=== PATIENT | female | born 1995 | race Caucasian/White ===

== ENCOUNTER → 2016-10-24 | Outpatient (CLI) | payer OTHER ==
--- NOTE | 2016-10-24 16:52 | REP ---
Obstetric sonography: History: Supervision of for anatomy. Findings: Scanning through the gravid uterus demonstrates a viable single intrauterine gestation in a cephalic lie. motion is observed and heart rate is recorded at 136 beats per minute. Anterior grade zero placenta is seen without evidence of previa. Amniotic fluid is subjectively normal. Closed cervical length is 4.0 cm measured transabdominally. No anomaly is seen. The following anatomic cysts features are identified and felt to be sonographically unremarkable: cranium, choroid plexus, cavum, cerebellum and posterior fossa, face and profile, lungs, four-chamber heart with left and right ventricular outflow tract views, diaphragm, left-sided stomach, abdominal wall cord insertion, three-vessel umbilical cord, kidneys and bladder, spine, upper and lower extremities. Biometry chart: BPD 4.5 cm = 19 weeks 5 days Head circumference 16.7 cm = 19 weeks 3 days Abdominal circumference 15.0 cm = 20 weeks 2 days Femur length 3.1 cm = 19 weeks 4 days Humeral length 2.9 cm = 19 weeks 3 days Cerebellar diameter 2.0 cm = 19 weeks 2 days HC/AC ratio normal at 1.12, cephalic index normal at 0.75, estimated weight 318 grams, 0 pounds 11 ounces, 60th percentile for 19 weeks 4 days. Impression: Viable single intrauterine gestation at 19 weeks 4 days by today's composite sonographic criteria. DEMOND by today's sonography 03/16/2017. anatomic survey is felt to be complete. Signed by Santos Masters MD 10/24/2016 05:09 P
== END | disposition home or self-care (01) ==
LOC: M SMT 10:46
PROVIDERS: ATTEND Advanced Practice Midwife
DX: Z34.82 Encounter for supervision of other normal pregnancy, second trimester (principal); Z36 Encounter for antenatal screening of mother; Z3A.19 19 weeks gestation of pregnancy

== ENCOUNTER → 2016-12-25 | Outpatient (CLI) | payer OTHER ==
[2016-12-25 18:22] LABS: BASO % 0.2 % (0.0-1.0); EOS # 0.1 K/mm3 (0.0-0.50); EOS % 0.6 % (0.0-3.0); LARGE UNSTAINED CELL # 0.1 K/mm3 (0.0-0.4); LYMPH # 1.4 K/mm3 (1.5-6.5); LYMPH % 14.7 % (24.0-44.0); MEAN CORPUSCULAR HEMOGLOBIN 27.1 pg (27.0-33.0); MEAN CORPUSCULAR HGB CONC 32.8 g/dl (32.0-36.5); MEAN CORPUSCULAR VOLUME 82.5 fl (80.0-96.0); MONO # 0.5 K/mm3 (0.0-0.8); MONO % 5.2 % (0.0-5.0); NEUTROPHILS # 7.1 K/mm3 (1.8-7.7); NEUTROPHILS % 78.2 % (36.0-66.0); PLATELET COUNT, AUTOMATED 437 k/mm3 (150-450); RED CELL DISTRIBUTION WIDTH 12.3 % (11.5-14.5); WHITE BLOOD COUNT 9.1 K/mm3 (4.0-10.0)
== END ==
LOC: M SMT 12:57
PROVIDERS: ATTEND Specialist
DX: Z34.82 Encounter for supervision of other normal pregnancy, second trimester (principal); Z36 Encounter for antenatal screening of mother; Z3A.00 Weeks of gestation of pregnancy not specified

== ENCOUNTER → 2017-01-29 | Outpatient (CLI) | payer OTHER ==
[2017-01-29 18:49] LABS: MEAN CORPUSCULAR HEMOGLOBIN 27.6 pg (27.0-33.0); MEAN CORPUSCULAR HGB CONC 32.9 g/dl (32.0-36.5); MEAN CORPUSCULAR VOLUME 83.9 fl (80.0-96.0); WHITE BLOOD COUNT 10.4 K/mm3 (4.0-10.0)
== END ==
LOC: M SMT 13:45
PROVIDERS: ATTEND Obstetrics & Gynecology
DX: Z34.83 Encounter for supervision of other normal pregnancy, third trimester (principal)

== ENCOUNTER 2017-02-12 08:51 | Outpatient (CLI) | payer OTHER ==
[~2017-02-12] VITALS: Ht 160 cm; Wt 74.8 kg
[2017-02-12] MEDS ORDERED: IRON SUCROSE 500 MG in NS 250 ML IV ONE (09:30)
[2017-02-12] MEDS ORDERED: FERR325T3 PO (09:40)
[2017-02-12] MEDS ORDERED: OMEP20CA3 PO (09:40)
[2017-02-12] MEDS ORDERED: ZANT1TAB PO (09:40)
== END 2017-02-12 14:00 | disposition home or self-care (01) ==
LOC: M INFU 08:51
PROVIDERS: ATTEND Specialist
DX: D64.9 Anemia, unspecified (principal); Z79.899 Other long term (current) drug therapy
CPT/HCPCS: 96365; 96366; J1756

== ENCOUNTER → 2017-02-15 | Outpatient (REF) | payer OTHER ==
[~2017-02-15] MED LIST: FERR325T3 PO; OMEP20CA3 PO; ZANT1TAB PO
== END ==
LOC: M LAB REF 16:56
PROVIDERS: ATTEND Advanced Practice Midwife
DX: Z34.83 Encounter for supervision of other normal pregnancy, third trimester (principal); Z36 Encounter for antenatal screening of mother; Z3A.00 Weeks of gestation of pregnancy not specified

== ENCOUNTER 2017-03-19 05:24 | Inpatient (IN) | payer OTHER ==
[~2017-03-19] VITALS: Ht 157.5 cm; Wt 76.0 kg
[2017-03-19] VITALS (23 sets, daily range): BP systolic 111–138; BP diastolic 58–99
[2017-03-19] MEDS ORDERED: PRENTAB55 PO (05:37)
[2017-03-19 06:24] LABS: MEAN CORPUSCULAR HEMOGLOBIN 27.9 pg (27.0-33.0); MEAN CORPUSCULAR HGB CONC 33.4 g/dl (32.0-36.5); MEAN CORPUSCULAR VOLUME 83.4 fl (80.0-96.0); WHITE BLOOD COUNT 9.8 K/mm3 (4.0-10.0)
--- NOTE | 2017-03-19 08:00 | HPE ---
DATE OF ADMISSION: 03/19/2017 22-year-old, (G) 1, para (P) 0 female at 40 and 6/7 weeks gestation by 8 week ultrasound with expected date of confinement (EDC) of 03/13/2017 who presents with loss of fluid per vagina at approximately 3:00 a.m. on the morning of admission. She had a large gush of fluid and continued to leak. Contractions began to increase shortly thereafter. There is good movement. COURSE: Patient initiated care at 9 weeks gestation on 08/01/2016. Her first trimester blood pressure was 122/68. course was significant for anemia and she had an iron infusion in December 2016. MEDICAL HISTORY: Noncontributory. SURGERIES: None. ALLERGIES: None. SOCIAL HISTORY: The patient is . She denies cigarettes, alcohol or drug use during . FAMILY HISTORY: Noncontributory. PHYSICAL EXAMINATION: Blood pressure 124/74. Pulse 84. She appears uncomfortable. HEAD AND NECK EXAM: Normal. LUNGS: Clear. HEART: Regular rate and rhythm. ABDOMEN: Nontender. Gravid. heart tones Category 1. STERILE VAGINAL EXAM: Grossly ruptured. Clear fluid noted. 3 cm dilated, 100% effaced, -2 station, vertex. EXTREMITIES: Nontender. LABS: Blood type A positive. Rubella equivocal. She had positive Chlamydia 08/01/2016 and subsequent negative test of cure. Diabetes screen 100. GBS negative on 02/15/2017. ASSESSMENT: 22-year-old, G1, at 40-6/7 weeks gestation who presents with ruptured membranes in active labor. The patient is admitted on 03/19/2017.
[2017-03-19] MEDS ORDERED: FENTANYL 2MCG/ML ROPIVACAINE 0.2% IN 0.9% NACL 200ML IVBAG As Ordered ONE (08:04)
[2017-03-19] MEDS ORDERED: REFRIGERATOR IV KEYS XX PRN (08:45)
[2017-03-19] MEDS ORDERED: FENTANYL/ROPIVACAINE/NACL BAG 200 ML EPIDURAL SCH (08:45)
[2017-03-19] MEDS ORDERED: ONDANSETRON 4MG/2ML VIAL (J2405) IV PRN ×2 (08:45→13:00)
[2017-03-19] MEDS ORDERED: ePHEDrine SULFATE 25 MG/5 ML(5MG/ML) SYRINGE IV PRN (08:45)
[2017-03-19] MEDS ORDERED: EPIDURAL COMMENT XX SCH (08:45)
[2017-03-19] MEDS ORDERED: diphenhydrAMINE INJ 50MG/ML VIAL (J1200) IV PRN (08:45)
[2017-03-19] MEDS ORDERED: EPIDURAL/PCA KEYS XX PRN (08:45)
[2017-03-19] MEDS ORDERED: LACTATED RINGER'S 1000 ML IV PRN (08:45)
[2017-03-19] MEDS ORDERED: NALOXONE INJ 0.4 MG/1 ML VIAL (J2310) IV PRN (08:45)
[2017-03-19] MEDS: PRENATAL VITAMINS CHEWABLE TABLET PO SCH (09:00)
[2017-03-19] MEDS ORDERED: LR 1,000 ML IV SCH ×2 (11:06→13:00)
[2017-03-19] MEDS ORDERED: OXYTOCIN 30 UNITS IN 0.9% NaCl 500ML IV BAG (J2590) As Ordered ONE (12:42)
[2017-03-19] MEDS ORDERED: DIBUCAINE 1% OINTMENT 30GM TOP PRN (13:00)
[2017-03-19] MEDS ORDERED: PROMETHAZINE 25 MG TAB PO PRN (13:00)
[2017-03-19] MEDS ORDERED: MEASLES,MUMPS,RUBELLA VACCINE INJ (MMR-II) (90707) SC SCH (13:00)
[2017-03-19] MEDS ORDERED: OXYTOCIN DRIP 30 UNITS in APPROPRIATE DILUENT 1 EA IV SCH (13:00)
[2017-03-19] MEDS ORDERED: RHOGAM 300 MCG (1500 IU) INJ (J2790) IM SCH (13:00)
[2017-03-19] MEDS ORDERED: METHYLERGONOVINE MALEATE 0.2 MG TAB PO PRN (13:00)
[2017-03-19] MEDS ORDERED: ACETAMINOPHEN 500 MG TAB PO PRN (13:00)
[2017-03-19] MEDS ORDERED: DOCUSATE SODIUM 100 MG CAP PO PRN (13:00)
[2017-03-19] MEDS ORDERED: IBUPROFEN 800 MG TAB PO PRN (13:00)
[2017-03-20 05:57] VITALS: BP 117/66
[2017-03-20] MEDS: PRENATAL VITAMINS CHEWABLE TABLET PO SCH ×2 (08:12→08:15)
[2017-03-20 18:00] VITALS: BP 115/58
[2017-03-21 05:56] VITALS: BP 123/70
[2017-03-21] MEDS: PRENATAL VITAMINS CHEWABLE TABLET PO SCH (08:22)
[2017-03-21] MEDS ORDERED: TYLE500T78 PO (08:41)
[2017-03-21] MEDS ORDERED: IBUP-1114 PO (08:42)
== END 2017-03-21 10:15 | disposition home or self-care (01) | DRG 775 ==
LOC: M LDO 05:24 → M OBS 06:05 → M LDI 07:43 → M OBS 15:08
PROVIDERS: ADMIT Specialist; ATTEND Specialist
PROC: 10E0XZZ Delivery of Products of Conception, External Approach (ICD-10-PCS; principal; 2017-03-19)
PROC: 0HQ9XZZ Repair Perineum Skin, External Approach (ICD-10-PCS; 2017-03-19)
DX: O48.0 Post-term pregnancy (principal); Z37.0 Single live birth; Z3A.40 40 weeks gestation of pregnancy; D64.9 Anemia, unspecified; O70.0 First degree perineal laceration during delivery; O99.02 Anemia complicating childbirth

== ENCOUNTER 2017-11-09 10:46 | Emergency (ER) | payer OTHER ==
[2017-11-09] MEDS: ACETAMINOPHEN TAB 650MG DOSE (2X325MG) PO (12:17)
== END 2017-11-09 12:48 | disposition home or self-care (01) ==
LOC: M ED 10:46
DX: S09.90XA Unspecified injury of head, initial encounter (principal); Y04.8XXA Assault by other bodily force, initial encounter; Y92.009 Unspecified place in unspecified non-institutional (private) residence as the place of occurrence of the external cause; Q76.49 Other congenital malformations of spine, not associated with scoliosis; Z97.5 Presence of (intrauterine) contraceptive device
CPT/HCPCS: 70450

== ENCOUNTER → 2017-11-21 | Outpatient (REF) | payer OTHER | LOC: M LAB REF 14:29 | DX: J02.9 Acute pharyngitis, unspecified (principal) ==

== ENCOUNTER → 2018-09-01 | Outpatient (REF) | payer OTHER, SELFPAY ==
[~2018-09-01] MED LIST changes: +IBUP-1114 PO; +PRENTAB55 PO; +TYLE500T78 PO; +ZANT150T15 PO; -ZANT1TAB PO; +iud
[2018-09-01 12:57] LABS: BASO % 0.4 % (0.0-1.0); EOS # 0.1 10^3/uL (0.0-0.50); HEMATOCRIT 39.5 % (36.0-47.0); HEMOGLOBIN 13.4 g/dl (12.0-15.5); LYMPH # 2.5 10^3/uL (1.5-6.5); LYMPH % 33.4 % (24.0-44.0); MEAN CORPUSCULAR HEMOGLOBIN 28.9 pg (27.0-33.0); MEAN CORPUSCULAR HGB CONC 33.9 g/dl (32.0-36.5); MEAN CORPUSCULAR VOLUME 85.3 fl (80.0-96.0); MONO # 0.4 10^3/uL (0.0-0.8); NEUTROPHILS # 4.3 10^3/uL (1.8-7.7); NEUTROPHILS % 58.9 % (36.0-66.0); PLATELET COUNT, AUTOMATED 346 10^3/uL (150-450); RED BLOOD COUNT 4.63 10^6/uL (4.00-5.40); WHITE BLOOD COUNT 7.4 10^3/uL (4.0-10.0)
== END ==
LOC: M SFHCADAM 10:06
PROVIDERS: ATTEND Physician Assistant Medical
DX: Z13.0 Encounter for screening for diseases of the blood and blood-forming organs and certain disorders involving the immune mechanism (principal)
CPT/HCPCS: 85025; G0463

== ENCOUNTER → 2018-12-26 | Outpatient (REF) | payer OTHER ==
[2018-12-26 12:47] LABS: FREE T4 1.11 NG/DL (0.76-1.46); THYROID STIMULATING HORMONE 1.17 uIU/ML (0.358-3.740)
== END ==
LOC: M SFHCADAM 09:10
PROVIDERS: ATTEND Physician Assistant Medical
DX: F32.1 Major depressive disorder, single episode, moderate (principal)
CPT/HCPCS: 84439; 84443; G0463

== ENCOUNTER → 2019-07-02 | Outpatient (REF) | payer BC, OTHER ==
[~2019-07-02] MED LIST changes: -OMEP20CA3 PO; +OMEP20CA4 PO
== END ==
LOC: M LAB REF 13:42
PROVIDERS: ATTEND Physician Assistant
DX: M54.9 Dorsalgia, unspecified (principal)

== ENCOUNTER → 2019-07-03 | Outpatient (CLI) | payer BC, OTHER ==
--- NOTE | 2019-07-03 11:10 | REP ---
Renal ultrasound, stat request: The patient complains of flank pain. The The right kidney measures 10.0 x 4.5 of 4.6 cm. The left kidney measures 10.3 x 4.6 x 4.4 cm. The kidneys are normal size. Renal cortical echogenicity is normal bilaterally. There is no hydronephrosis on the right on the left. There are no renal calculi. There are no solid or cystic renal masses. Bladder: Ureteral jets could not be identified with color Doppler assessment, however, there is no hydronephrosis. Impression: No renal calculi are identified. There is no hydronephrosis. There are no solid or cystic masses. Essentially negative renal ultrasound. Electronically Signed by Miguel Medrano MD 07/03/2019 11:01 A
== END ==
LOC: M RAD 09:40 → MERGE 09:40
PROVIDERS: ATTEND Physician Assistant
DX: R10.9 Unspecified abdominal pain (principal)

== ENCOUNTER 2019-09-15 19:02 | Emergency (ER) | payer OTHER, BC ==
[~2019-09-15] VITALS: Ht 157.5 cm; Wt 56.8 kg
[~2019-09-15 19:02] MED LIST changes: +OMEP-172 PO; -OMEP20CA4 PO
[2019-09-15] MEDS ORDERED: SERT-138 PO (19:10)
[2019-09-15 19:12] VITALS: BP 131/78
[2019-09-15] MEDS ORDERED: MIRE1IUD IU (19:14)
--- NOTE | 2019-09-15 20:00 | REPVR ---
PROCEDURE INFORMATION: Exam: CT Head Without Contrast Exam date and time: 09/15/2019 7:26 PM Age: 24 years old Clinical indication: Pain; Headache; Additional info: Trauma TECHNIQUE: Imaging protocol: Computed tomography of the head without contrast. Axial and coronal reformatted images were created and reviewed. Radiation optimization: All CT scans at this facility use at least one of these dose optimization techniques: automated exposure control; mA and/or kV adjustment per patient size (includes targeted exams where dose is matched to clinical indication); or iterative reconstruction. COMPARISON: CT Head without contrast 11/09/2017 11:59 AM FINDINGS: Brain: No CT evidence of acute intracranial hemorrhage or acute territorial infarction. No significant mass effect or midline shift. Basal cisterns patent. Ventricles: Normal in size and configuration. Bones/joints: No acute osseous abnormality. Sinuses: Grossly unremarkable. Mastoid air cells: Grossly unremarkable. Soft tissues: Grossly unremarkable. IMPRESSION: No CT evidence of acute intracranial pathology. Electronically signed by: Crow Orozco On 09/15/2019 19:59:52 PM
--- NOTE | 2019-09-15 20:05 | REPVR ---
PROCEDURE INFORMATION: Exam: CT Cervical Spine Without Contrast Exam date and time: 09/15/2019 7:26 PM Age: 24 years old Clinical indication: Neck pain; Additional info: Trauma TECHNIQUE: Imaging protocol: Computed tomography images of the cervical spine without contrast. Axial, coronal and sagittal reformatted images were created and reviewed. Radiation optimization: All CT scans at this facility use at least one of these dose optimization techniques: automated exposure control; mA and/or kV adjustment per patient size (includes targeted exams where dose is matched to clinical indication); or iterative reconstruction. COMPARISON: CT Spine,cervical w/o contrast 11/09/2017 11:59 AM FINDINGS: Vertebrae: Normal cervical lordosis. Alignment anatomic. Mild dextroscoliosis. 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 No CT evidence of acute fracture, dislocation or subluxation. Vertebral body heights maintained. Discs/Spinal canal/Neural foramina: Intervertebral disc spaces preserved. No significant spinal canal or neural foraminal stenosis. Soft tissues: Grossly unremarkable. Lungs: Grossly unremarkable. IMPRESSION: 1. No CT evidence of acute cervical spine traumatic injury. 2. Additional findings, as above. Electronically signed by: Crow Orozco On 09/15/2019 20:05:24 PM
== END 2019-09-15 20:22 | disposition home or self-care (01) ==
LOC: M ED 19:02
DX: S00.93XA Contusion of unspecified part of head, initial encounter (principal); S16.1XXA Strain of muscle, fascia and tendon at neck level, initial encounter; V49.40XA Driver injured in collision with unspecified motor vehicles in traffic accident, initial encounter; Y92.410 Unspecified street and highway as the place of occurrence of the external cause; Y93.9 Activity, unspecified

== ENCOUNTER → 2019-11-13 | Outpatient (CLI) | payer OTHER, BC ==
[~2019-11-13] MED LIST changes: +MIRE1IUD IU; -OMEP-172 PO; +OMEP1CAP73 PO; +SERT-138 PO
--- NOTE | 2019-11-13 14:13 | REP ---
Clinical: Pain Technique: AP, lateral, bilateral oblique views right foot . Findings: The osseous structures and joint spaces are intact and normal. There is no evidence for acute fracture or dislocation. Surrounding soft tissues are unremarkable. No subcutaneous emphysema or radiodense foreign body. Impression: No acute fracture or dislocation. Electronically Signed by Mike Veliz MD 11/13/2019 02:05 P
--- NOTE | 2019-11-13 14:13 | REP ---
Clinical: Nontraumatic pain. Technique: AP, lateral, bilateral oblique views of the right ankle. Findings: Osseous structures, joint spaces, and surrounding soft tissues are essentially normal. No significant swelling. Ankle mortise intact. Impression: Normal right ankle radiographs. Electronically Signed by Mike eVliz MD 11/13/2019 02:04 P
== END ==
LOC: M ADAMS 13:13
PROVIDERS: ATTEND Nurse Practitioner Family
DX: M25.571 Pain in right ankle and joints of right foot (principal)

== ENCOUNTER → 2020-06-03 | Outpatient (CLI) | payer BC, OTHER ==
--- NOTE | 2020-06-23 11:20 | REP ---
LEFT KNEE X-RAY: CLINICAL: Pain TECHNIQUE: AP, lateral, bilateral oblique and sunrise views of the left knee. FINDINGS: Osseous structures, joint spaces and surrounding soft tissues appear relatively normal. No acute or healed injury is appreciated. No significant arthritic changes. No obvious effusion. IMPRESSION: Normal left knee radiographs. MTDD
== END ==
LOC: M ADAMS 09:31
PROVIDERS: ATTEND Nurse Practitioner Family
DX: M25.562 Pain in left knee (principal)

== ENCOUNTER → 2022-06-29 | Outpatient (REF) | payer OTHER, BC | LOC: M SFHCWAGY 10:05 | PROVIDERS: ATTEND Nurse Practitioner Family | DX: Z12.4 Encounter for screening for malignant neoplasm of cervix (principal); N76.0 Acute vaginitis ==

== ENCOUNTER 2023-08-07 05:45 | Emergency (ER) | payer BC, MEDICAID, OTHER ==
[~2023-08-07] VITALS: Ht 157.5 cm; Wt 60.9 kg
[2023-08-07 05:45] VITALS: BP 123/78; TEMP 98.7; O2SAT 100
[2023-08-07] MEDS ORDERED: IBUPROFEN 800 MG TAB PO ONE (06:55)
== END 2023-08-07 08:49 | disposition home or self-care (01) ==
LOC: M ED 05:45
DX: S92.402A Displaced unspecified fracture of left great toe, initial encounter for closed fracture (principal); W20.8XXA Other cause of strike by thrown, projected or falling object, initial encounter; F10.10 Alcohol abuse, uncomplicated; Y92.39 Other specified sports and athletic area as the place of occurrence of the external cause; Y93.B3 Activity, free weights; Y99.9 Unspecified external cause status; Z79.899 Other long term (current) drug therapy

== ENCOUNTER 2024-07-12 16:27 | Emergency (ER) | payer MEDICAID, OTHER ==
[~2024-07-12] VITALS: Ht 157.5 cm; Wt 65.9 kg
[2024-07-12 16:30] VITALS: BP 116/67; TEMP 99.1; O2SAT 99
[2024-07-12] MEDS: NORCO, ANEXSIA 5/325MG TABLET (HYDROcodone/ACETAMINOPHEN) PO ONE (19:08)
[2024-07-12] MEDS ORDERED: NAPR-837 PO (19:17)
== END 2024-07-12 19:37 | disposition home or self-care (01) ==
LOC: M ED 16:27
DX: M23.92 Unspecified internal derangement of left knee (principal); M25.462 Effusion, left knee; Y92.9 Unspecified place or not applicable; Y93.66 Activity, soccer; Y99.9 Unspecified external cause status; Z79.1 Long term (current) use of non-steroidal anti-inflammatories (NSAID); Z79.899 Other long term (current) drug therapy

== ENCOUNTER → 2025-05-20 | Outpatient (REF) | payer MEDICAID, OTHER ==
[~2025-05-20] MED LIST changes: +NAPR-837 PO
[2025-05-20 17:40] LABS: BASO # 0.0 10^3/uL (0.0-0.2); BASO % 0.4 % (0.0-1.0); EOS # 0.1 10^3/uL (0.0-0.5); EOS % 0.8 % (0.0-3.0); LYMPH # 3.0 10^3/uL (1.5-5.0); LYMPH % 29.8 % (24.0-44.0); MONO # 0.8 10^3/uL (0.0-0.8); MONO % 7.6 % (2.0-8.0); NEUTROPHILS # 6.1 10^3/uL (1.5-8.5); NEUTROPHILS % 61.2 % (36.0-66.0); PLATELET COUNT, AUTOMATED 350 10^3/uL (150-450)
[2025-05-20 17:49] LABS: ERYTHROCYTE SEDIMENTATION RATE 25 mm/hr (0-20)
[2025-05-20 18:26] LABS: C REACTIVE PROTEIN QUANTITATIV < 0.50 MG/DL (<1.0)
[2025-05-20 18:27] LABS: ALT/SGPT 21 U/L (7.0-40); AST/SGOT 22 U/L (<34); CALCIUM LEVEL 9.5 MG/DL (8.5-10.1); CARBON DIOXIDE LEVEL 27 MMOL/L (20-31); CHLORIDE LEVEL 103 MMOL/L (98-107); CHOLESTEROL LEVEL 170 MG/DL (<200); CHOLESTEROL RISK RATIO 3.86 (<5); CREATININE FOR GFR 0.80 MG/DL (0.55-1.30); GLOMERULAR FILTRATION RATE > 90.0 (>60); LDL CHOLESTEROL 101.2 MG/DL (<100); NON-HDL-C 126.0 MG/DL; POTASSIUM SERUM 4.1 MMOL/L (3.5-5.1); SODIUM LEVEL 139 MMOL/L (136-145); TRIGLYCERIDES LEVEL 124 MG/DL (<150)
[2025-05-20 18:29] LABS: TOTAL 25(OH) VITAMIN D 30.0 NG/ML (20.0-100.0)
[2025-05-20 19:00] LABS: HIV 1&2 SCREEN NEGATIVE (NEGATIVE)
[2025-05-20 19:07] LABS: HEPATITIS C VIRUS ABY INDEX < 0.02 INDEX (<0.8)
[2025-05-20 19:26] LABS: ESTIMATED AVERAGE GLUCOSE 100.0 MG/DL (60-110)
[2025-05-25 12:33] LABS: SSA SJOGRENS A <1.0 NEG AI (<1.0 NEG); SSB SJOGRENS B <1.0 NEG AI (<1.0 NEG)
[2025-05-28 15:17] LABS: HLA-B27 Negative (Negative)
== END ==
LOC: M LAB REF 16:56
PROVIDERS: ATTEND Physician Assistant
DX: Z11.9 Encounter for screening for infectious and parasitic diseases, unspecified (principal); E66.9 Obesity, unspecified; R21 Rash and other nonspecific skin eruption